=== PATIENT | female | born 1975 | race Caucasian/White ===

== ENCOUNTER 2025-02-14 02:36 | Inpatient (IN) | payer OTHER ==
[~2025-02-14] VITALS: Ht 154.9 cm; Wt 77.2 kg
--- NOTE | 2025-02-14 03:05 | ED.PDOC ---
GI ASSESSMENT HPI Comments Pt c/o flulike symptoms since yesterday morning. Pt c/o nausea/vomiting, diarrhea, intermittent abd pain, body aches, chills, headache, neck stiffness/pain. Pt rates current pain 10/10. Denies any sick contacts, fevers, cough, chest pain or difficulty breathing.. Pt just came back from vacation yesterday morning. Chief Complaint: Flu like Time Seen by MD: 02:44 Reviewed Notes: Nurses Notes, Medications, Allergies Allergies: Coded Allergies: NO KNOWN ALLERGIES (Unverified , 02/14/25) Information Source: Patient Mode of Arrival: Ambulatory Past Medical History PAST MEDICAL HISTORY: Denies Surgical History: Denies all surgeries [employer] History: No Pertinent [employer] History Family History Family History: Reviewed,noncontributory to illness Social History Smoker: Non-Smoker Alcohol: Denies ETOH Use Drugs: Denies Drug Use Constitutional: reports: fever, others (Body aches); denies: chills, diaphoresis, fatigue, malaise, sweats, weakness EENTM: denies: blurred vision, double vision, ear bleeding, ear discharge, ear drainage, ear pain, ear ringing, eye pain, eye redness, hearing loss, mouth pain, mouth swelling, nasal discharge, nose bleeding, nose congestion, nose pain, photophobia, tearing, throat pain, throat swelling, voice changes, others Cardiovascular: denies: chest pain, dizzy spells, diaphoresis, Dyspnea on exertion, edema, irregular heart beat, left arm pain, lightheadedness, palpitations, PND, syncope, others Gastrointestinal: reports: abdominal pain, diarrhea, nausea, vomiting; denies: abdomen distended, blood streaked bowels, constipated, dysphagia, difficulty swallowing, hematemesis, melena, poor appetite, poor fluid intake, rectal bleeding, rectal pain, others Physical Exam General Appearance: No Apparent Distress, Normal HEENT: Normal ENT Inspection, Pharynx Normal, TMs Normal Neck: Limited Range of Motion, Tender Lateral (Bilateral against resistance) Respiratory: Lungs Clear, No Respiratory Distress, Normal Breath Sounds Cardiovascular: No Edema, No JVD, No Murmur, No Gallop, Normal Peripheral Pulses, Regular Rate/Rhythm Breast Exam: Deferred Gastrointestinal: Distended, No Organomegaly, No Pulsatile Mass, Normal Bowel Sounds, Soft, Tenderness (Right and left lower quadrants) Genitalia: Deferred Pelvic: Deferred Rectal: Deferred Extremities: No calf tenderness, Normal capillary refill, Normal inspection, Normal range of motion, Non-tender, No pedal edema Musculoskeletal : Apperance: Normal Neurologic: Alert, relationship assoc II-XII nml as Tested, No Motor Deficits, Normal Affect, Normal Mood, No Sensory Deficits Cerebellar Function: Normal Reflexes: Normal Skin: Dry, Normal Color, Warm Lymphatic: No Adenopathy Was a procedure done? Was a procedure done?: No GI differential Dx Differential Diagnosis: Appendicitis, Cholecystitis, Gastroenteritis, UTI, Electrolyte Imbalance, Food Poisoning, Bacterial, Parasitic, Viral X-Ray, Labs, Meds, VS Vital Signs Date Time Temp Pulse Resp B/P (MAP) Pulse Ox O2 Delivery O2 Flow Rate FiO2 02/14/25 04:34 98.2 100 20 136/80 (98) 100 98.2 02/14/25 03:51 99.8 95 20 139/100 (113) 100 99.8 02/14/25 03:51 95 20 100 Nasal Cannula 2.0 02/14/25 02:41 98.6 122 20 177/94 96 98.6 Lab Test 02/14/25 03:28 02/14/25 03:24 02/14/25 03:07 02/14/25 02:50 Range/Units Lipase 43 12-53 U/L White Blood Count 19.2 H 4.4-10.8 10^3/uL Red Blood Count 4.98 4.0-5.20 10^6/uL Hemoglobin 12.5 12.2-16.2 g/dL Hematocrit 38.3 36.0-46.0 % Mean Corpuscular Volume 77.0 L 80.0-100.0 fL Mean Corpuscular Hemoglobin 25.0 L 28.0-32.0 pg Mean Corpuscular Hemoglobin Concent 32.5 32.0-36.0 g/dL Red Cell Distribution Width 19.8 H 11.8-14.3 % Platelet Count 289 140-450 10^3/uL Mean Platelet Volume 7.7 6.9-10.8 fL Neutrophils (%) (Auto) 89.2 H 37.0-80.0 % Lymphocytes (%) (Auto) 8.1 L 10.0-50.0 % Monocytes (%) (Auto) 2.1 0.0-12.0 % Eosinophils (%) (Auto) 0.4 0.0-7.0 % Basophils (%) (Auto) 0.2 0.0-2.0 % Neutrophils # (Auto) 17.1 H 1.6-8.6 10 ^3/uL Lymphocytes # (Auto) 1.6 0.4-5.4 10 ^3/uL Monocytes # (Auto) 0.4 0-1.3 10 ^3/uL Eosinophils # (Auto) 0.1 0-0.8 10 ^3/uL Basophils # (Auto) 0 0-0.2 10 ^3/uL Nucleated Red Blood Cells 0.1 % Sodium Level 140 136-145 mmol/L Potassium Level 4.2 3.5-5.1 mmol/L Chloride Level 109 H 98-107 mmol/L Carbon Dioxide Level 20 20-31 mmol/L Anion Gap 11 5-15 Blood Urea Nitrogen 12 9-23 mg/dL Creatinine 0.55 0.550-1.02 mg/dL Glomerular Filtration Rate Calc 112 >90 mL/min BUN/Creatinine Ratio 21.8 H 10.0-20.0 Serum Glucose 128 H 74-106 mg/dL Calcium Level 9.0 8.7-10.4 mg/dL Total Bilirubin 0.3 0.2-1.0 mg/dL Aspartate Amino Transferase (AST) 41 H 13-40 U/L Alanine Aminotransferase (ALT) 36 7-40 U/L Alkaline Phosphatase 122 H 46-116 U/L Total Protein 7.1 5.7-8.2 g/dL Albumin 4.1 3.2-4.8 g/dL Influenza Type A Antigen Negative Negative Influenza Type B Antigen Negative Negative SARS-CoV-2 Antigen (Rapid) Negative NEGATIVE Urine Color Light-yellow Yellow Urine Clarity Clear Clear Urine pH 6.0 5.0-9.0 Urine Specific Martin 1.011 1.001-1.035 Urine Protein Negative Negative Urine Ketones Negative Negative Urine Blood Negative Negative /uL Urine Nitrite Negative Negative Urine Bilirubin Negative Negative Urine Urobilinogen Normal Negative mg/dL Urine Leukocyte Esterase Negative Negative /uL Urine RBC None seen 0 - 4 /hpf Urine Microscopic WBC 2 0-5 /HPF Urine Squamous Epithelial Cells Few <5 /hpf Urine Bacteria None seen None Seen /hpf Urine Glucose Normal Normal mg/dL Urine Test Negative Negative Current Medications Medications (Trade) Dose Ordered Sig/Dewayne Route Start Time Stop Time Status Last Admin Ondansetron HCl (Zofran) 4 mg ONCE ONCE IV 02/14/25 03:00 02/14/25 03:01 DC 02/14/25 03:50 Sodium Chloride 1,000 ml @ 1,000 mls/hr Q1H ONCE IV 02/14/25 03:00 02/14/25 03:59 DC 02/14/25 03:43 Ketorolac Tromethamine (Toradol Injection) 30 mg ONCE ONCE IV 02/14/25 03:00 02/14/25 03:01 DC 02/14/25 03:50 X-Ray, Labs, Meds, VS Comment CBC elevated white count at 19.2. UA within normal limits. CMP within normal limits. CT cervical spine patient with moderate cervical pain and stiffness right arm weakness and pain considered spinal abscess, CT spine shows no acute findings noted cervical spondylosis. CT abdomen patient with bilateral lower quadrant abdominal pain, nausea vomiting. CT abdomen shows no acute process does show hepatomegaly. Chest x-ray shows no acute cardiopulmonary findings. Patient was given Toradol 30 mg Ivp she noted some improvement in her neck stiffness and pain however continued right shoulder and arm pain. Patient placed for hospitalist for admission leukocytosis consider possible meningitis we will need LP. Time of 1ST Reevaluation: 03:05 Reevaluation 1ST: Unchanged Time of 2ND Reevaluation: 05:05 Reevaluation 2ND: Improved Patient Education/Counseling: Diagnosis, Treatment, Prognosis, Need For Follow Up Family Education/Counseling: No Family Present SEPSIS Sepsis Screen Date sepsis recognized/suspect: Feb 14, 2025 Time Sepsis recognized/suspect: 244 Recent Procedure: No On Antibiotic Therapy: No Respiratory Rate >20: No Heart Rate >90: Yes Temp<36 C (96.8 F) or >38.3 C: No SBP <90 or MAP <65 mmHG: No New Acute Mental Status Change: No Is the patient on CPAP, BIPAP,: No Physician Orders Heplock Iv (02/14/25 02:59) Cervical Without Contrast (02/14/25 04:21) Chest Two Views Routine (02/14/25 04:21) Ct Ab Pel Wo Con-No Oral Or Iv (02/14/25 04:37) Vital Signs Date Time Temp Pulse Resp B/P (MAP) Pulse Ox O2 Delivery O2 Flow Rate FiO2 02/14/25 04:34 98.2 100 20 136/80 (98) 100 98.2 02/14/25 03:51 99.8 95 20 139/100 (113) 100 99.8 02/14/25 03:51 95 20 100 Nasal Cannula 2.0 02/14/25 02:41 98.6 122 20 177/94 96 98.6 Laboratory Tests Test 02/14/25 03:24 White Blood Count 19.2 10^3/uL (4.4-10.8) H Medications Medications Dose Ordered Sig/Dewayne Route Start Time Stop Time Status Last Admin Dose Admin Ketorolac Tromethamine 30 mg ONCE ONCE IV 02/14/25 03:00 02/14/25 03:01 DC 02/14/25 03:50 Ondansetron HCl 4 mg ONCE ONCE IV 02/14/25 03:00 02/14/25 03:01 DC 02/14/25 03:50 Sodium Chloride 1,000 ml @ 1,000 mls/hr Q1H ONCE IV 02/14/25 03:00 02/14/25 03:59 DC 02/14/25 03:43 Departure 1 Departure Time of Disposition: 05:24 Impression: Primary Impression: Leukocytosis Qualified Codes: D72.829 - Elevated white blood cell count, unspecified Additional Impression: Neck pain Disposition: 09 ADMITTED INPATIENT Condition: Stable Discharged With: Self Critical Care Note Critical Care Time?: No Stability Stability form required: AISSATOU RodriguezP Feb 14, 2025 03:05
[2025-02-14 03:43] LABS: Hemoglobin 12.5 g/dL (12.2-16.2)
[2025-02-14] MEDS: SODIUM CHLORIDE 0.9% 1,000 ML IV ONE (03:43)
[2025-02-14] MEDS: KETOROLAC TROMETH 30 MG/ML 1ML VIAL IV ONE (03:50)
[2025-02-14] MEDS: ONDANSETRON HCL 4 MG/2 ML VIAL IV ONE (03:50)
[2025-02-14 03:58] LABS: Alanine Aminotransferase 36 U/L (7-40); Albumin 4.1 g/dL (3.2-4.8); Anion Gap 11 (5-15); BUN/Creatinine Ratio 21.8 (10.0-20.0); Blood Urea Nitrogen 12 mg/dL (9-23); Calcium 9.0 mg/dL (8.7-10.4); Potassium 4.2 mmol/L (3.5-5.1); Sodium 140 mmol/L (136-145); Total Protein 7.1 g/dL (5.7-8.2)
[2025-02-14 04:00] LABS: Hematocrit 38.3 % (36.0-46.0); Mean Corpuscular Hemoglobin 25.0 pg (28.0-32.0); Mean Corpuscular Volume 77.0 fL (80.0-100.0); Nucleated Red Blood Cells % 0.1 %
[2025-02-14 04:02] LABS: Alkaline Phosphatase 122 U/L (46-116); Carbon Dioxide 20 mmol/L (20-31); Chloride 109 mmol/L (98-107); Glucose 128 mg/dL (74-106)
[2025-02-14 04:02] LABS: Urine Protein, UAD Negative (Negative)
[2025-02-14 04:03] LABS: Bilirubin, Total 0.3 mg/dL (0.2-1.0)
[2025-02-14 04:04] LABS: COVID19 ANTIGEN SOFIA FIA NEGATIVE (NEGATIVE)
--- NOTE | 2025-02-14 05:09 | DVH ---
CHEST RADIOGRAPH Indication: high WBC Technique: Frontal and lateral view of the chest was obtained Comparison: None FINDINGS: Lines and Tubes: None Lungs: Clear Pleura: No effusion. No pneumothorax. Cardiomediastinal contours: Unremarkable Bones: Unremarkable IMPRESSION: 1. No evidence of acute disease.
--- NOTE | 2025-02-14 05:11 | DVH ---
EXAM: CT CERVICAL WITHOUT CONTRAST INDICATION: Neck pain EXAM DATE: 02/14/2025 04:30 AM COMPARISON: None TECHNIQUE: Multiple axial CT images of the cervical spine were obtained using bone algorithm. Sagitta l and coronal reformatting was done. Bone and soft tissue windows were reviewed. Radiation Dose Information: CT Dose: CTDI volume is 26.4 mGy. Dose-length product is 587.6 mGy*cm FINDINGS: The cervical alignment is intact. Reversal of the cervical lordosis. No acute cervical spine fracture is identified. The vertebral body heights are intact. No suspicious osseous lesions are identified. Multilevel intervertebral disc degeneration. Mild central canal stenosis at C5-C7 due to posterior o steophytes. Moderate bilateral neural foraminal stenosis at C5-C6 and C6-C7. There is no prevertebral soft tissue swelling. Lung apices are clear. IMPRESSION: 1. No evidence of acute cervical spine fracture or traumatic malalignment. 2. Multilevel cervical spondylosis. All CT scans at this medical facility are performed using dose modulation techniques as appropriate t o a performed exam including the following: Automated exposure control was utilized; adjustment of th e MA and/or KV according to patient size; and use of iterative reconstruction technique.
--- NOTE | 2025-02-14 05:12 | DVH ---
Exam: CT CT AB PEL WO CON-NO ORAL OR IV History: abd pain Comparison Study: None Technique: Multidetector spiral CT of the abdomen was performed from lung bases to pubic symphysis. I maging was performed without IV contrast. Axial, coronal and sagittal multiplanar reformats were obta ined from the axial data set by the technologist. Radiation Dose : 1. Abdomen/Pelvis: CTDIvol 12.57 mGy, DLP 758.47 mGy*cm. Findings: Evaluation of solid organs is limited due to lack of intravenous contrast use. Lung Bases: No acute or significant lung base finding. Normal heart size. No pleural or pericardial effusion. Liver: The liver is enlarged, measuring 20.0 cm in craniocaudal dimension. No focal lesions. Gallbladder and Biliary Tree: Unremarkable Spleen: Unremarkable Pancreas: The pancreas is grossly normal in appearance. Adrenal Glands: Unremarkable Kidneys: Kidneys are grossly normal without calculi or hydronephrosis. Bladder: Grossly unremarkable for degree of distention. Bowel: The stomach is grossly normal in appearance. Small bowel and colon are normal in caliber and d istribution. The appendix is normal. Ascites: Absent Lymphadenopathy: No mesenteric, retroperitoneal or periportal lymphadenopathy. Abdominal Wall and Mesentery: Unremarkable. Vasculature: The visualized abdominal aorta is normal in size and caliber. Evaluation of abdominal a nd pelvic vessels is limited due to lack of intravenous contrast. Pelvic Organs: Unremarkable Musculoskeletal: No aggressive focal bony lesions, acute fractures or dislocation. IMPRESSION: 1. No acute abdominal or pelvic findings. 2. Hepatomegaly. Radiation optimization: All CT scans at this facility use at least one of these dose optimization bindu hniques: automated exposure control mA and/or kV adjustment per patient size (includes targeted exam s where dose is matched to clinical indication) or iterative reconstruction.
[2025-02-14 05:36] VITALS: PULSE 82; RESP 18; O2SAT 95
[2025-02-14] MEDS ORDERED: DOCUSATE SOD 100 MG CAP PO PRN (07:15)
[2025-02-14] MEDS ORDERED: TEMAZEPAM 15 MG CAP PO PRN (07:15)
[2025-02-14] MEDS ORDERED: NITROGLYCERIN 0.4 MG SL TAB SL PRN (07:15)
--- NOTE | 2025-02-14 07:16 | DVHHP2 ---
History of Present Illness Reason for Visit: flu like symptoms History of Present Illness 49-year-old female with past medical history of hypertension, hyperlipidemia, and prior meniscus injury to the right knee presents with her for evaluation of multiple symptoms. The patient and her recently returned from a five-day vacation in [facility] returning yesterday. Since yesterday, she reports flu-like symptoms including nausea, diarrhea, chills, headache, generalized body aches, and neck pain. She also endorses right-sided weakness involving the shoulder and lower extremity, with difficulty lifting her right arm due to pain. She denies chest pain or shortness of breath. She reports taking two pain pills prior to arrival without relief. She also reports intermittent vomiting. No fevers were documented but she reports chills. In the ED: CBC notable for leukocytosis (WBC 19.2), remainder of CBC unremarkable. CMP unremarkable except for mild dehydration. COVID-[address] cervical spine was unremarkable. CT abdomen/pelvis unremarkable. No CT brain initially orderedwill add. Chest X-ray unremarkable. On exam, neuro exam intact, no focal deficits noted, but she had limited range of motion in the right shoulder due to pain. She ambulated briefly but had discomfort. Given elevated WBC and persistent symptoms, will admit for further workup, hydration, and pain management. Past Medical History See HPI above Past Surgical History See HPI above Family History Reviewed, non-contributory to the management of this case. Past Social History The patient lives at home, denies smoking, alcohol or illicit drugs abuse. Review of Systems Constitutional: Yes: Fever, Chills, Weakness; No: Sweats, Malaise, Other Eyes: No: Pain, Vision change, Conjunctivae inflammation, Eyelid inflammation, Other, Redness ENT: No: Ear pain, Ear discharge, Nose pain, Nose discharge, Nose congestion, Mouth pain, Mouth swelling, Throat pain, Throat swelling, Other Respiratory: No: Cough, Dry, Shortness of breath, SOB with excertion, Wheezing, Hemoptysis, Pleuritic Pain, Sputum, Wheezing, Other Cardiovascular: No: Chest Pain, Palpitations, Orthopnea, Paroxysmal Noc. Dyspnea, Edema, Lt Headedness, Other Gastrointestinal: No: Nausea, Vomiting, Abdominal Pain, Diarrhea, Constipation, Melena, Hematochezia, Other Genitourinary: No Dysuria, No Frequency, No Incontinence, No Hematuria, No Retention, No Other Musculoskeletal: No: other, neck pain, shoulder pain, arm pain, back pain, hand pain, leg pain, foot pain Skin: No: Rash, Lesions, Jaundice, Bruising, Other Neurological: Weakness; No: Numbness, Incoordination, Change in speech, Confusion, Seizures, Other Allergies: Coded Allergies: NO KNOWN ALLERGIES (Unverified , 02/14/25) Exam Vital Signs Vital Signs Date Time Temp Pulse Resp B/P (MAP) Pulse Ox O2 Delivery O2 Flow Rate FiO2 02/14/25 05:36 98.6 82 18 130/61 (84) 95 98.6 02/14/25 05:36 Room Air* 0 21 General Appearance: Alert, Oriented X3, Cooperative, No acute distress, mild distress, Other (no nuchal rigidity ) HEENT: Atraumatic, PERRLA, EOMI, Mucous membr. moist/pink Respiratory: Clear to auscultation, Normal air movement Cardiovascular: Regular rate, Normal S1, Normal S2, No murmurs Abdominal: Normal bowel sounds, Soft, No tenderness, No hepatospenomegaly, No masses Extremities: No clubbing, No cyanosis, No edema, Normal pulses, No tenderness/swelling, Other (right shoulder and knee no heat no erythema no effusion seen at knee compartment soft nvi +silt ) Skin: No rashes, No breakdown, No significant lesion Neuro: Normal gait, Normal speech, Strength at 5/5 X4 ext, Normal tone, Sensati on intact, Cranial nerves 3-12 NL, Other (mild weakness to right arm gait appears normal) Psych/Mental Status: Mental status NL, Mood NL Labs/Xrays CT C-spine unremarkable CT scan of the abdomen and pelvis unremarkable hepatomegaly Chest x-ray unremarkable I reviewed labs, imaging CT scan abdomen pelvis, EKG and all diagnostic studies on this patient from ED records and the medical chart Labs Test 02/14/25 06:50 02/14/25 03:28 02/14/25 03:24 02/14/25 03:07 Range/Units Lipase 43 12-53 U/L White Blood Count 19.2 H 4.4-10.8 10^3/uL Red Blood Count 4.98 4.0-5.20 10^6/uL Hemoglobin 12.5 12.2-16.2 g/dL Hematocrit 38.3 36.0-46.0 % Mean Corpuscular Volume 77.0 L 80.0-100.0 fL Mean Corpuscular Hemoglobin 25.0 L 28.0-32.0 pg Mean Corpuscular Hemoglobin Concent 32.5 32.0-36.0 g/dL Red Cell Distribution Width 19.8 H 11.8-14.3 % Platelet Count 289 140-450 10^3/uL Mean Platelet Volume 7.7 6.9-10.8 fL Neutrophils (%) (Auto) 89.2 H 37.0-80.0 % Lymphocytes (%) (Auto) 8.1 L 10.0-50.0 % Monocytes (%) (Auto) 2.1 0.0-12.0 % Eosinophils (%) (Auto) 0.4 0.0-7.0 % Basophils (%) (Auto) 0.2 0.0-2.0 % Neutrophils # (Auto) 17.1 H 1.6-8.6 10 ^3/uL Lymphocytes # (Auto) 1.6 0.4-5.4 10 ^3/uL Monocytes # (Auto) 0.4 0-1.3 10 ^3/uL Eosinophils # (Auto) 0.1 0-0.8 10 ^3/uL Basophils # (Auto) 0 0-0.2 10 ^3/uL Nucleated Red Blood Cells 0.1 % Sodium Level 140 136-145 mmol/L Potassium Level 4.2 3.5-5.1 mmol/L Chloride Level 109 H 98-107 mmol/L Carbon Dioxide Level 20 20-31 mmol/L Anion Gap 11 5-15 Blood Urea Nitrogen 12 9-23 mg/dL Creatinine 0.55 0.550-1.02 mg/dL Glomerular Filtration Rate Calc 112 >90 mL/min BUN/Creatinine Ratio 21.8 H 10.0-20.0 Serum Glucose 128 H 74-106 mg/dL Calcium Level 9.0 8.7-10.4 mg/dL Total Bilirubin 0.3 0.2-1.0 mg/dL Aspartate Amino Transferase (AST) 41 H 13-40 U/L Alanine Aminotransferase (ALT) 36 7-40 U/L Alkaline Phosphatase 122 H 46-116 U/L Total Protein 7.1 5.7-8.2 g/dL Albumin 4.1 3.2-4.8 g/dL Influenza Type A Antigen Negative Negative Influenza Type B Antigen Negative Negative SARS-CoV-2 Antigen (Rapid) Negative NEGATIVE Test 02/14/25 02:50 Range/Units Urine Color Light-yellow Yellow Urine Clarity Clear Clear Urine pH 6.0 5.0-9.0 Urine Specific [place] 1.011 1.001-1.035 Urine Protein Negative Negative Urine Ketones Negative Negative Urine Blood Negative Negative /uL Urine Nitrite Negative Negative Urine Bilirubin Negative Negative Urine Urobilinogen Normal Negative mg/dL Urine Leukocyte Esterase Negative Negative /uL Urine RBC None seen 0 - 4 /hpf Urine Microscopic WBC 2 0-5 /HPF Urine Squamous Epithelial Cells Few <5 /hpf Urine Bacteria None seen None Seen /hpf Urine Glucose Normal Normal mg/dL Urine Test Negative Negative SEPSIS Sepsis Screen Date sepsis recognized/suspect: Feb 14, 2025 Time Sepsis recognized/suspect: 602 Recent Procedure: No On Antibiotic Therapy: No Respiratory Rate >20: No Heart Rate >90: No Temp<36 C (96.8 F) or >38.3 C: No SBP <90 or MAP <65 mmHG: No New Acute Mental Status Change: No Is the patient on CPAP, BIPAP,: No Physician Orders Heplock Iv (02/14/25 02:59) Cervical Without Contrast (02/14/25 04:21) Chest Two Views Routine (02/14/25 04:21) Ct Ab Pel Wo Con-No Oral Or Iv (02/14/25 04:37) Lactic Acid W/ Reflex Order (02/14/25 06:09) Blood Culture (02/14/25 06:09) Vital Signs Date Time Temp Pulse Resp B/P (MAP) Pulse Ox O2 Delivery O2 Flow Rate FiO2 02/14/25 05:36 98.6 82 18 130/61 (84) 95 98.6 02/14/25 05:36 82 18 95 Room Air* 0 21 02/14/25 04:34 98.2 100 20 136/80 (98) 100 98.2 02/14/25 03:51 99.8 95 20 139/100 (113) 100 99.8 02/14/25 03:51 95 20 100 Nasal Cannula 2.0 02/14/25 02:41 98.6 122 20 177/94 96 98.6 Laboratory Tests Test 02/14/25 03:24 02/14/25 06:50 White Blood Count 19.2 10^3/uL (4.4-10.8) H Lactic Acid Level Pending Medications Medications Dose Ordered Sig/Dewayne Route Start Time Stop Time Status Last Admin Dose Admin Ketorolac Tromethamine 30 mg ONCE ONCE IV 02/14/25 03:00 02/14/25 03:01 DC 02/14/25 03:50 30 MG Ondansetron HCl 4 mg ONCE ONCE IV 02/14/25 03:00 02/14/25 03:01 DC 02/14/25 03:50 4 MG Sodium Chloride 1,000 ml @ 1,000 mls/hr Q1H ONCE IV 02/14/25 03:00 02/14/25 03:59 DC 02/14/25 03:43 1,000 MLS/HR Assessment/Plan Assessment/Plan 49 yr old female with Leukocytosis with systemic symptoms and right-sided musculoskeletal pain requires inpatient evaluation for infectious, inflammatory, and neurologic causes. acute Gastrointestinal symptoms (nausea, vomiting, diarrhea) ct scan no acute findings ordered Zofran PRN for nausea IV fluid hydration Monitor electrolytes ordered cdiff acute Headache and neck pain ?right side weakness CT brain STAT to rule out acute intracranial pathology Neurology consult fu recs Analgesia and hydration neuro checks prn acute Leukocytosis with systemic symptoms can be viral vs acute phase reactant Obtain blood cultures 2 UA with reflex culture Stool cultures and C. difficile PCR given diarrhea Empiric IV fluids and symptomatic management Consider empiric antibiotics if infectious source identified acute Right shoulder pain and weakness X-ray right shoulder to rule out fracture/dislocation Analgesia: acetaminophen, NSAID if renal function stable, low-dose opioid PRN for severe pain Physical therapy consult for mobility acute Right knee pain (history of meniscus injury) X-ray right knee to rule out acute injury Continue supportive care and analgesia us to rule out dvt chronic problems acute Hypertension Continue home antihypertensives Hyperlipidemia Continue statin therapy FEN / PPx Fluids: IV NS for hydration Electrolytes: Monitor and replace PRN Nutrition: Regular diet as tolerated DVT Prophylaxis: Enoxaparin 40 mg SC daily GI Prophylaxis: no gi ppx since no hx of gerds or gi bleed Disposition Admit to medical floor for further infectious and neurologic workup, IV hydration, pain management, and monitoring. Plan discussed with: Patient, Spouse Date of Service: Feb 14, 2025 Billing Provider: SARAH NATHAN DNP Common Visit Codes: [id number] INP/OBS CARE (HIGH) SARAH NATHAN [facility] Feb 14, 2025 07:16
--- NOTE | 2025-02-14 07:48 | DVH ---
EXAM: CT HEAD WITHOUT CONTRAST INDICATION: Eval for acute headache TECHNIQUE: CT of the head without intravenous contrast. Coronal and sagittal reformatted images are s ubmitted. Radiation Dose : 1. Head: CT Dose: CTDI volume is 62.6 mGy. Dose-length product is 841.1 mGy*cm The dose indicators for CT are the volume Computed Tomography (CT) Dose Index (CTDIvol) and the Dose Length Product (DLP), and are measured in units of mGy and mGy-cm, respectively. These indicators are not patient dose, but values generated from the CT scanner acquisition factors. The report includes radiation exposure data for exposures received during this examination. All CT scans at this medical facility are performed using dose modulation techniques as appropriate to a performed exam including the following: Automated exposure control was utilized; adjustment of the MA and/or KV according to patient size; and use of iterative reconstruction technique. COMPARISON: CT CERVICAL WITHOUT CONTRAST on DOS: 02/14/25 FINDINGS: There is no evidence of acute intracranial hemorrhage, extra-axial collection, mass effect, midline s hift, herniation or hydrocephalus. The ventricles, sulci and cisterns are age appropriate. The post-white differentiation is intact. The visualized paranasal sinuses and mastoid air cells are clear. No depressed calvarial fracture. The surrounding soft tissues are unremarkable. IMPRESSION: 1. No evidence of acute intracranial abnormality.
--- NOTE | 2025-02-14 07:50 | DVH ---
EXAM: XY R SHOULDER 2+ VIEW XRAY HISTORY: eval for right shoulder pain COMPARISON: None TECHNIQUE: Four views of the right shoulder were performed. FINDINGS: No acute fracture or dislocation are identified about the right shoulder. Acromioclavicular joint sp melvi narrowing. 4 mm focus of mineralization overlying the humeral head. IMPRESSION: 1. No fracture or dislocation. 2. Calcific tendinitis in the rotator cuff.
--- NOTE | 2025-02-14 07:51 | DVH ---
EXAM: XY R KNEE 3V XRAY HISTORY: Eval for acute right knee pain COMPARISON: None TECHNIQUE: 3 views of the right knee were performed. FINDINGS: No acute fracture is identified about the right knee. Lateral compartment joint space narrowing. La teral compartment osteophytes. Patellofemoral osteophytes. IMPRESSION: 1. No fracture or dislocation in the right knee.
--- NOTE | 2025-02-14 08:18 | DVH ---
Right lower extremity venous duplex Clinical History: eval for dvt Comparison: None Technique: Duplex Doppler evaluation of the deep venous system of the right lower extremity from the common femo ral vein to the popliteal vein including color Doppler and spectral/pulsed waveform analysis was perf ormed. Findings: The common femoral vein demonstrates appropriate compressibility and waveform variability. There is compressibility/patency of the great saphenous vein at the proximal thigh. The femoral vein demonstrates appropriate compressibility and waveform variability. The deep femoral vein demonstrates appropriate compressibility and waveform variability. The popliteal vein demonstrates appropriate compressibility and waveform variability. There is normal compressibility at the tibioperoneal trunk. Impression: No right femoropopliteal venous thrombosis.
[2025-02-14 08:57] VITALS: PULSE 92; RESP 18; O2SAT 96
[2025-02-14] MEDS: SODIUM CHLORIDE 0.9% 1,000 ML IV SCH ×2 (09:14→22:31)
[2025-02-14] MEDS: MORPHINE SULFATE INJ 2 MG/ml SYRG IV PRN (09:14)
[2025-02-14] MEDS: ONDANSETRON HCL 4 MG/2 ML VIAL IV PRN (09:15)
[2025-02-14 17:40] VITALS: BP 114/75; PULSE 65; RESP 19; TEMP 98.9; O2SAT 98
--- NOTE | 2025-02-14 17:55 | DVHPN2 ---
Subjective I am assuming the care of the patient from today onwards who was under the care of the hospitalist team. Patient denies any right-sided weakness or any slurred speech stroke like symptoms. Changes from previous H/P or p: No Changes Eyes: No Pain, No Vision change, No Conjunctivae inflammation, No Eyelid inflammation, No Other, No Redness ENT: No Ear pain, No Ear discharge, No Nose pain, No Nose discharge, No Nose congestion, No Mouth pain, No Mouth swelling, No Throat pain, No Throat swelling, No Other Cardiovascular: No Chest Pain, No Palpitations, No Orthopnea, No Paroxysmal Noc. Dyspnea, No Edema, No Lt Headedness, No Other Respiratory: No Cough, No Dry, No Shortness of breath, No SOB with excertion, No Wheezing, No Hemoptysis, No Pleuritic Pain, No Sputum, No Other Gastrointestinal: No Nausea, No Vomiting, No Abdominal Pain, No Diarrhea, No Constipation, No Melena, No Hematochezia, No Other Genitourinary: No Dysuria, No Frequency, No Incontinence, No Hematuria, No Retention, No Other Musculoskeletal: No other, No neck pain, No shoulder pain, No arm pain, No back pain, No hand pain, No leg pain, No foot pain Skin: No Rash, No Lesions, No Jaundice, No Bruising, No Other Objective Vitals Vital Signs Date Time Temp Pulse Resp B/P (MAP) Pulse Ox O2 Delivery O2 Flow Rate FiO2 02/14/25 17:34 92 14 155/85 02/14/25 14:30 95 02/14/25 11:30 98.2 98.2 02/14/25 08:57 Room Air* 0 21 Exam HEENT pupils are reactive Neck is supple CVS S1-S2 regular rate and rhythm Respiratory bilateral clear next GI positive bowel sounds Extremity no edema H[employer]ER no motor deficit Medications Current Medications Medications Dose Ordered Sig/Dewayne Route Start Time Stop Time Status Last Admin Dose Admin Sodium Chloride 1,000 ml @ 120 mls/hr Q8H20M IV 02/14/25 07:15 02/14/25 09:14 120 MLS/HR Temazepam 15 mg QHSP PRN PO 02/14/25 07:15 Ondansetron HCl 4 mg Q4HP PRN IV 02/14/25 07:15 02/14/25 16:39 4 MG Docusate Sodium 100 mg BIDPRN PRN PO 02/14/25 07:15 Morphine Sulfate 2 mg Q4HPRN PRN IV 02/14/25 07:15 02/14/25 16:39 2 MG Nitroglycerin 0.4 mg Q5MINP PRN SL 02/14/25 07:15 Losartan Potassium 50 mg DAILY PO 02/15/25 10:00 UNV Laboratory Results Laboratory Tests 02/14/25 03:24 Chemistry Test 02/14/25 03:24 Albumin 4.1 g/dL (3.2-4.8) Calcium Level 9.0 mg/dL (8.7-10.4) Total Protein 7.1 g/dL (5.7-8.2) Lipid panel Test 02/14/25 03:28 Lipase 43 U/L (12-53) LFT Test 02/14/25 03:24 Alanine Aminotransferase (ALT) 36 U/L (7-40) Alkaline Phosphatase 122 U/L (46-116) H Aspartate Amino Transferase (AST) 41 U/L (13-40) H Total Bilirubin 0.3 mg/dL (0.2-1.0) Urinalysis Test 02/14/25 02:50 Urine Color Light-yellow (Yellow) Urine Clarity Clear (Clear) Urine pH 6.0 (5.0-9.0) Urine Specific [place] 1.011 (1.001-1.035) Urine Protein Negative (Negative) Urine Ketones Negative (Negative) Urine Blood Negative /uL (Negative) Urine Nitrite Negative (Negative) Urine Bilirubin Negative (Negative) Urine Urobilinogen Normal mg/dL (Negative) Urine Leukocyte Esterase Negative /uL (Negative) Urine RBC None seen /hpf (0 - 4) Urine Microscopic WBC 2 /HPF (0-5) Urine Squamous Epithelial Cells Few /hpf (<5) Urine Bacteria None seen /hpf (None Seen) Urine Glucose Normal mg/dL (Normal) Urine Test Negative (Negative) Assessment/Plan Assessment/Plan 49-year-old female with a known history of hypertension, morbid obesity class one initially presented to the hospital with right-sided weakness and headache found to have 1. Right-sided weakness and headache rule out acute stroke, ruled out subarachnoid hemorrhage 2. Hypertension 3. Dyslipidemia 4. Mild leukocytosis elderly acute phase reactant -continue hypertensive medications MRI brain mild lumbar puncture -neurology follow up Plan discussed with: Patient My Orders Orders - MAURICE RUIZ MD Procedure Category Date Status Time Brain Head Wo Contrast MRI 02/14/25 Logged 17:30 Date of Service: Mar 17, 2025 Billing Provider: MAURICE RUIZ MD Common Visit Codes: [id number] INP/OBS CARE(MOD) MAURICE RUIZ MD Feb 14, 2025 17:55
[2025-02-14 18:07] VITALS: PULSE 78; RESP 22; O2SAT 98
--- NOTE | 2025-02-14 19:50 | DVHINCON2 ---
Date of service: Feb 14, 2025 Referring Physician Rosanna Reason for Consultation Acute right-sided weakness and headache History of Present Illness Ms. Ryan Lai is a 49 years old right-handed female with a history of obesity, hypertension, she was brought to the [facility] on 02/14 25 with a chief company of headache. At this time, she is alert and fully oriented, she and her provided the following history She woke up in the morning on 02/14/25 with the worst headache in her life, which is a 10/10 pulsating pain in bilateral occipital region, neck, along with neck stiffness, right-sided weakness in that she was not able to get up. but there was no associated vision change, nausea, vomiting. She has never had similar problem before, she has no history of headache/migraine, she denies a family history of headache/migraine On 02/13/2025, she had nausea, vomiting and the nausea Urinalysis, 02/14/2025: WBC: Two, urine leukocyte esterase: Negative WBC/HB/PLT/MCV, 02/14/2025: 19.2/12.5/289/77 CMP, 02/14/2025: Unremarkable CT head, 02/14/2025: No evidence of acute intracranial abnormality. Past Medical History Diabetes Past Surgical History Right knee surgery, Family History Hypertension, diabetes, heart disease. No headache Social History She has no history of drug or alcohol abuse. She used to smoke tobacco Allergies: Coded Allergies: NO KNOWN ALLERGIES (Unverified , 02/14/25) Current Medications Current Medications Medications (Trade) Dose Ordered Sig/Dewayne Route PRN Reason Start Time Stop Time Status Last Admin Sodium Chloride 1,000 ml @ 120 mls/hr Q8H20M IV 02/14/25 07:15 02/14/25 09:14 Temazepam (Restoril) 15 mg QHSP PRN PO FOR INSOMNIA 02/14/25 07:15 Ondansetron HCl (Zofran) 4 mg Q4HP PRN IV NAUSEA / VOMITING 02/14/25 07:15 02/14/25 16:39 Docusate Sodium (Colace Capsule) 100 mg BIDPRN PRN PO FOR CONSTIPATION 02/14/25 07:15 Morphine Sulfate 2 mg Q4HPRN PRN IV SEVERE PAIN (7-10 PAIN SCALE) 02/14/25 07:15 02/14/25 16:39 Nitroglycerin (Ntrostat Sublingual) 0.4 mg Q5MINP PRN SL FOR CHEST PAIN 02/14/25 07:15 Losartan Potassium (Cozaar Tablet) 50 mg DAILY PO 02/15/25 10:00 Review of Systems As above, the other systems are negative Vital Signs Vital Signs Date Time Temp Pulse Resp B/P (MAP) Pulse Ox O2 Delivery O2 Flow Rate FiO2 02/14/25 17:40 98.9 65 19 114/75 (88) 98 98.9 02/14/25 08:57 Room Air* 0 21 Physical Exam GENERAL EXAM: General: the patient is well developed and nourished. No acute distress. HEENT: Normocephalic, neck is supple, no carotid bruits. No mass. RESPIRATORY: Normal respiratory effort with symmetrical lung expansion. Lungs clear to auscultation. CARDIOVASCULAR: Regular rate and rhythm with no murmurs. S1, S2. ABDOMEN: Soft, nontender, normal bowel sound NEUROLOGICAL: MENTAL STATUS: Awake and alert. Oriented to person, place, time and general circumstances. Able to give personal history SPEECH, LANGUAGE, HIGHER CORTICAL FUNCTION: no aphasia or dysathria. CRANIAL NERVES: #2: Intact visual monreal to confrontation. The optic discs were sharp. #3,4,6: Pupils are equal, round and reactive. EOMs full and conjugate. No nystagmus. #5: Facial sensation intact in all three divisions bilaterally. Mandibular strength intact. #7: Facial muscles symmetrical and strength intact. #8: Hearing grossly normal to voice. #9,10: Uvula and soft palate rise in the midline. Swallow and voice are normal. #11: Trapezius and sternomastoid strength intact bilaterally. #12: Tongue midline. No fasciculations or atrophy. SENSATION: Sensation to touch and pinprick is normal. MOTOR: Normal tone in the upper and lower extremity. Normal muscle bulk. No fasciculations. No abnormal movements or posturing. Muscle strength of the major groups in the left extremities is 5/5. Muscle strength of the major groups in the right extremities is 4/5 with drift in the arms and leg. REFLEXES: Deep tendon reflexes are symmetrical. No pathological reflexes. CEREBELLAR/COORDINATION: Finger to nose is normal bilaterally. GAIT/STATION: deferred. Labs/Diagnostic Data Labs Test 02/14/25 06:50 02/14/25 03:28 02/14/25 03:24 02/14/25 03:07 Range/Units Lactic Acid Level 1.5 0.4-2.0 mmol/L Lipase 43 12-53 U/L White Blood Count 19.2 H 4.4-10.8 10^3/uL Red Blood Count 4.98 4.0-5.20 10^6/uL Hemoglobin 12.5 12.2-16.2 g/dL Hematocrit 38.3 36.0-46.0 % Mean Corpuscular Volume 77.0 L 80.0-100.0 fL Mean Corpuscular Hemoglobin 25.0 L 28.0-32.0 pg Mean Corpuscular Hemoglobin Concent 32.5 32.0-36.0 g/dL Red Cell Distribution Width 19.8 H 11.8-14.3 % Platelet Count 289 140-450 10^3/uL Mean Platelet Volume 7.7 6.9-10.8 fL Neutrophils (%) (Auto) 89.2 H 37.0-80.0 % Lymphocytes (%) (Auto) 8.1 L 10.0-50.0 % Monocytes (%) (Auto) 2.1 0.0-12.0 % Eosinophils (%) (Auto) 0.4 0.0-7.0 % Basophils (%) (Auto) 0.2 0.0-2.0 % Neutrophils # (Auto) 17.1 H 1.6-8.6 10 ^3/uL Lymphocytes # (Auto) 1.6 0.4-5.4 10 ^3/uL Monocytes # (Auto) 0.4 0-1.3 10 ^3/uL Eosinophils # (Auto) 0.1 0-0.8 10 ^3/uL Basophils # (Auto) 0 0-0.2 10 ^3/uL Nucleated Red Blood Cells 0.1 % Sodium Level 140 136-145 mmol/L Potassium Level 4.2 3.5-5.1 mmol/L Chloride Level 109 H 98-107 mmol/L Carbon Dioxide Level 20 20-31 mmol/L Anion Gap 11 5-15 Blood Urea Nitrogen 12 9-23 mg/dL Creatinine 0.55 0.550-1.02 mg/dL Glomerular Filtration Rate Calc 112 >90 mL/min BUN/Creatinine Ratio 21.8 H 10.0-20.0 Serum Glucose 128 H 74-106 mg/dL Calcium Level 9.0 8.7-10.4 mg/dL Total Bilirubin 0.3 0.2-1.0 mg/dL Aspartate Amino Transferase (AST) 41 H 13-40 U/L Alanine Aminotransferase (ALT) 36 7-40 U/L Alkaline Phosphatase 122 H 46-116 U/L Total Protein 7.1 5.7-8.2 g/dL Albumin 4.1 3.2-4.8 g/dL Influenza Type A Antigen Negative Negative Influenza Type B Antigen Negative Negative SARS-CoV-2 Antigen (Rapid) Negative NEGATIVE Test 02/14/25 02:50 Range/Units Urine Color Light-yellow Yellow Urine Clarity Clear Clear Urine pH 6.0 5.0-9.0 Urine Specific [place] 1.011 1.001-1.035 Urine Protein Negative Negative Urine Ketones Negative Negative Urine Blood Negative Negative /uL Urine Nitrite Negative Negative Urine Bilirubin Negative Negative Urine Urobilinogen Normal Negative mg/dL Urine Leukocyte Esterase Negative Negative /uL Urine RBC None seen 0 - 4 /hpf Urine Microscopic WBC 2 0-5 /HPF Urine Squamous Epithelial Cells Few <5 /hpf Urine Bacteria None seen None Seen /hpf Urine Glucose Normal Normal mg/dL Urine Test Negative Negative Assessment Acute there was ever headache maximized at the moment on waking up, with right- sided weakness Acute stroke Rule out brain aneurysm, Rule out subarachnoid hemorrhage Plan/Recommendation Monitoring Supportive treatment Telemetry Lumbar puncture for the evidence of SAH MR brain scan CTA head, neck More recommendation per clinical course This medical document was created using an electronic medical record system with [employer] dictation system. Although this document has been carefully reviewed, there may still be some phonetic and typographical errors. These areas are purely typographical due to imperfections of the software programs, and do not reflect any compromise in the patient's medical care. Plan discussed with: Patient, Spouse, Other LISBET ZACARIAS MD Feb 14, 2025 19:50
[2025-02-14 20:00] VITALS: PULSE 64; RESP 18; O2SAT 99
[2025-02-14 21:00] VITALS: BP 120/79; PULSE 64; RESP 18; TEMP 98.7; O2SAT 99
[2025-02-14] MEDS ORDERED: LOSA-534 PO (21:52)
[2025-02-15] VITALS (9 sets, daily range): BP systolic 122–149; BP diastolic 76–100; PULSE 68–91; RESP 17–19; TEMP 97.7–98.4; O2SAT 95–100
[2025-02-15] MEDS ORDERED: IOHEXOL 350 MG/ML 100ML IJ ONE (00:09)
--- NOTE | 2025-02-15 01:00 | DVH ---
INDICATION: Brain aneurysm COMPARISON: CT HEAD WITHOUT CONTRAST on DOS: 02/14/25, CT CERVICAL WITHOUT CONTRAST on DOS: 02/14/25 TECHNIQUE: CTA head without and with intravenous contrast. CTA neck with intravenous contrast. 3D image postprocessing was performed on a dedicated workstation and images were used for interpretation and reporting. Radiation Dose Information: CT Dose: CTDI volume is 22.23 mGy. Dose-length product is 891.22 mGy*cm FINDINGS: Evaluation is mildly degraded by motion artifact. CTA head: There is normal enhancement of the visualized distal internal carotid, anterior and middle cerebral a rteries. The vertebral, basilar, cerebellar and posterior cerebral arteries are within normal limit s. The early parenchymal enhancement is grossly unremarkable. The visualized intracranial venous st ructures are grossly unremarkable. No aneurysm is seen. CTA neck: The visualized thoracic aortic arch and proximal great vessels are unremarkable. The left common, internal and external carotid arteries are within normal limits. The right common, internal and external carotid arteries are within normal limits. The cervical segments of the right and left vertebral arteries are within normal limits. The limited visualized lung apices are clear. The surrounding soft tissues and osseous structures ar e otherwise unremarkable. IMPRESSION: 1. No acute vascular abnormality identified. All CT scans at this medical facility are performed using dose modulation techniques as appropriate t o a performed exam including the following: Automated exposure control was utilized; adjustment of th e MA and/or KV according to patient size; and use of iterative reconstruction technique.
[2025-02-15 06:40] LABS: Hematocrit 31.8 % (36.0-46.0); Hemoglobin 10.6 g/dL (12.2-16.2); Mean Corpuscular Hemoglobin 25.6 pg (28.0-32.0); Mean Corpuscular Volume 76.8 fL (80.0-100.0); Nucleated Red Blood Cells % 0.1 %
[2025-02-15 06:58] LABS: Alanine Aminotransferase 31 U/L (7-40); Albumin 3.9 g/dL (3.2-4.8); Alkaline Phosphatase 103 U/L (46-116); Anion Gap 9 (5-15); BUN/Creatinine Ratio 11.6 (10.0-20.0); Blood Urea Nitrogen < 5 mg/dL (9-23); Calcium 8.9 mg/dL (8.7-10.4); Carbon Dioxide 25 mmol/L (20-31); Chloride 107 mmol/L (98-107); Glucose 95 mg/dL (74-106); Potassium 3.5 mmol/L (3.5-5.1); Sodium 141 mmol/L (136-145); Total Protein 6.5 g/dL (5.7-8.2)
[2025-02-15 06:59] LABS: Bilirubin, Total 0.3 mg/dL (0.2-1.0)
[2025-02-15 08:57] LABS: INR 1.12 (0.9-1.15); Partial Thromboplastin Time 27.6 SEC (24.5-34.5); Prothrombin Time 11.7 sec (9.3-11.8)
--- NOTE | 2025-02-15 09:23 | DVH ---
MRI BRAIN HEAD WO CONTRAST INDICATION: Right-sided weakness. EXAM DATE: 02/15/2025 08:42 AM COMPARISON: CT ANGIO HEAD/NECK on DOS: 02/15/25, CT HEAD WITHOUT CONTRAST on DOS: 02/14/25, CT CERVICAL WITHOUT CONTRAST on DOS: 02/14/25 PROCEDURE: Using a 1.5 Heena scanner, multisequence multiplanar imaging of the brain was obtained. FINDINGS: The brainshows normal morphology and signal characteristics. No abnormal T2 hyperintensity, diffusion restriction, or susceptibility hypointensity is present. The ventricles are normal in size . The midline structures are intact. The major intracranial flow voids are present. The aerated space s are normal. The orbital contents and extracranial soft tissues appear normal. IMPRESSION: No acute abnormal MRI findings of the brain.
[2025-02-15] MEDS ORDERED: LIDOCAINE 2%HCL (LOCAL ANESTH.) INJ 20ML MDV ONE (10:33)
[2025-02-15] MEDS: LOSARTAN POTASSIUM 50 MG TAB PO SCH (11:09)
--- NOTE | 2025-02-15 11:13 | DVH ---
PROCEDURE: Lumbar puncture (LP) - Diagnostic Procedural Personnel Attending physician(s): Riccardo Olguin Fellow physician(s): None Resident physician(s): None Advanced practice provider(s): None Pre-procedure diagnosis: Headaches Post-procedure diagnosis: Same Indication: Suspicion of subarachnoid hemorrhage Additional clinical history: None Complications: No immediate complications. IMPRESSION: Image-guided lumbar puncture, yielding 10 mL of clear fluid. Plan: The patient tolerated the procedure well.The patient was transferred to the recovery area for an hour of observation. PROCEDURE SUMMARY: - Diagnostic lumbar puncture with fluoroscopic guidance - Additional procedure(s): None PROCEDURE DETAILS: Pre-procedure Consent: Informed consent for the procedure including risks, benefits and alternatives was obtained a nd time-out was performed prior to the procedure. Preparation: The site was prepared and draped using maximal sterile barrier technique including cutan eous antisepsis. Anesthesia/sedation Level of anesthesia/sedation: No sedation Anesthesia/sedation administered by: Not applicable Total intra-service sedation time (minutes): Not applicable Lumbar puncture The patient was placed in left lateral decubitus position. Local anesthesia was administered. Under image guidance, a spinal needle was advanced into the subarachnoid space using oblique interlaminar approach. Spinal needle: 20 gauge, 3.5 inch Interspace level: L2-L3 Opening CSF pressure: 23 cm H2O Volume of CSF removed (mL): 10 CSF fluid appearance: clear Closure The needle was removed and hemostasis was achieved with manual compression. A sterile bandage was paulo lied. Radiation Dose Fluoroscopy time (seconds ): 27 Reference air kerma (mGy ): 6 Kerma area product (Gy-cm2 ): .74 Additional Details Additional description of procedure: None Registry event: V /3 /g Device used: None Equipment details: None Unique Device Identifiers: Not available Specimens removed: None Estimated blood loss (mL): Less than 10 Standardized report: [email or web address] Attestation Signer name: Riccardo Olguin I attest that I was present for the entire procedure . I reviewed the stored images and agree with th e report as written.
[2025-02-15 12:19] LABS: Protein, CSF 34.0 mg/dL (15-45)
[2025-02-15 12:33] LABS: Description,CSF CLEAR
--- NOTE | 2025-02-15 17:14 | DVHPN2 ---
Subjective Patient's MRI brain is negative, LP was done which shows no evidence of organisms. Neurology follow up per discharge plan. Changes from previous H/P or p: No Changes Eyes: No Pain, No Vision change, No Conjunctivae inflammation, No Eyelid inflammation, No Other, No Redness ENT: No Ear pain, No Ear discharge, No Nose pain, No Nose discharge, No Nose congestion, No Mouth pain, No Mouth swelling, No Throat pain, No Throat swelling, No Other Cardiovascular: No Chest Pain, No Palpitations, No Orthopnea, No Paroxysmal Noc. Dyspnea, No Edema, No Lt Headedness, No Other Respiratory: No Cough, No Dry, No Shortness of breath, No SOB with excertion, No Wheezing, No Hemoptysis, No Pleuritic Pain, No Sputum, No Other Gastrointestinal: No Nausea, No Vomiting, No Abdominal Pain, No Diarrhea, No Constipation, No Melena, No Hematochezia, No Other Genitourinary: No Dysuria, No Frequency, No Incontinence, No Hematuria, No Retention, No Other Musculoskeletal: No other, No neck pain, No shoulder pain, No arm pain, No back pain, No hand pain, No leg pain, No foot pain Skin: No Rash, No Lesions, No Jaundice, No Bruising, No Other Objective Vitals Vital Signs Date Time Temp Pulse Resp B/P (MAP) Pulse Ox O2 Delivery O2 Flow Rate FiO2 02/15/25 17:01 97.7 84 17 145/86 (105) 95 97.7 02/15/25 08:00 Room Air* 0 21 Intake/Output Intake and Output 02/15/25 07:00 Intake Total 1360 ml Balance 1360 ml Intake Oral 400 ml IV Total 960 ml # Voids 1 Exam HEENT pupils are reactive Neck is supple CVS S1-S2 regular rate and rhythm Respiratory viral clear GI positive bowel sounds soft nondistended nontender Extremity no edema [employer]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 motor deficit Medications Current Medications Medications Dose Ordered Sig/Dewayne Route Start Time Stop Time Status Last Admin Dose Admin Temazepam 15 mg QHSP PRN PO 02/14/25 07:15 Ondansetron HCl 4 mg Q4HP PRN IV 02/14/25 07:15 02/14/25 16:39 4 MG Docusate Sodium 100 mg BIDPRN PRN PO 02/14/25 07:15 Morphine Sulfate 2 mg Q4HPRN PRN IV 02/14/25 07:15 02/15/25 13:44 2 MG Nitroglycerin 0.4 mg Q5MINP PRN SL 02/14/25 07:15 Losartan Potassium 50 mg DAILY PO 02/15/25 10:00 02/15/25 11:09 50 MG Sodium Chloride 1,000 ml @ 100 mls/hr Q10H IV 02/14/25 20:30 02/14/25 22:31 100 MLS/HR Clonidine HCl 0.1 mg Q4HP PRN PO 02/14/25 21:15 02/15/25 06:40 0.1 MG Laboratory Results Laboratory Tests 02/15/25 05:39 Chemistry Test 02/15/25 05:39 Albumin 3.9 g/dL (3.2-4.8) Calcium Level 8.9 mg/dL (8.7-10.4) Total Protein 6.5 g/dL (5.7-8.2) Coagulation Test 02/15/25 05:39 Prothrombin Time 11.7 sec (9.3-11.8) Prothrombin Time INR 1.12 (0.9-1.15) Activated Partial Thromboplast Time 27.6 SEC (24.5-34.5) LFT Test 02/15/25 05:39 Alanine Aminotransferase (ALT) 31 U/L (7-40) Alkaline Phosphatase 103 U/L (46-116) Aspartate Amino Transferase (AST) 26 U/L (13-40) Total Bilirubin 0.3 mg/dL (0.2-1.0) Urinalysis Test 02/14/25 02:50 Urine Color Light-yellow (Yellow) Urine Clarity Clear (Clear) Urine pH 6.0 (5.0-9.0) Urine Specific [place] 1.011 (1.001-1.035) Urine Protein Negative (Negative) Urine Ketones Negative (Negative) Urine Blood Negative /uL (Negative) Urine Nitrite Negative (Negative) Urine Bilirubin Negative (Negative) Urine Urobilinogen Normal mg/dL (Negative) Urine Leukocyte Esterase Negative /uL (Negative) Urine RBC None seen /hpf (0 - 4) Urine Microscopic WBC 2 /HPF (0-5) Urine Squamous Epithelial Cells Few /hpf (<5) Urine Bacteria None seen /hpf (None Seen) Urine Glucose Normal mg/dL (Normal) Urine Test Negative (Negative) Microbiology Microbiology Date/Time Source Procedure Growth Status 02/15/25 11:00 Cerebral Spinal Fluid Gram Stain - Final Resulted 02/15/25 11:00 Cerebral Spinal Fluid CSF Culture & Gram Stain (Tube 2) M Pending Resulted 02/14/25 07:15 Blood Blood Culture - Preliminary NO GROWTH AFTER 24 HOURS OF INCUBATION. Resulted Assessment/Plan Assessment/Plan 49-year-old female with a known history of hypertension, morbid obesity class one initially presented to the hospital with right-sided weakness and headache found to have 1. Right-sided weakness and headache rule out acute stroke, ruled out subarachnoid hemorrhage 2. Hypertension 3. Dyslipidemia 4. Mild leukocytosis elderly acute phase reactant -continue hypertensive medications MRI brain mild lumbar puncture -neurology follow up Plan discussed with: Patient, Spouse My Orders Orders - MAURICE RUIZ MD Procedure Category Date Status Time Brain Head Wo Contrast MRI 02/15/25 Resulted 17:30 Date of Service: Feb 15, 2025 Billing Provider: MAURICE RUIZ MD Common Visit Codes: [id number] INP/OBS CARE(MOD) MAURICE RUIZ MD Feb 15, 2025 17:14
[2025-02-16] VITALS (9 sets, daily range): BP systolic 136–181; BP diastolic 80–107; PULSE 69–102; RESP 18–20; TEMP 97.8–98.2; O2SAT 93–98
--- NOTE | 2025-02-16 16:36 | DVHDS2 ---
Discharge Summary Date of Admission Feb 14, 2025 at 07:10 Date of Discharge: Feb 16, 2025 Labs/Diagnostic Data: Laboratory Results Test 02/15/25 11:00 02/15/25 05:39 02/14/25 06:50 02/14/25 03:28 CSF Tube Number Tube 3 CSF Appearance Clear CSF WBC 0 CUMM (0-5) CSF RBC 0 CUMM (0-5) CSF Protein (Tube 2) 34.0 mg/dL (15-45) CSF Mononuclear Cells % CSF Polymorphonuclear Cells % CSF Glucose 67 mg/dL (40-70) White Blood Count 7.1 10^3/uL (4.4-10.8) Red Blood Count 4.15 10^6/uL (4.0-5.20) Hemoglobin 10.6 g/dL (12.2-16.2) Hematocrit 31.8 % (36.0-46.0) Mean Corpuscular Volume 76.8 fL (80.0-100.0) Mean Corpuscular Hemoglobin 25.6 pg (28.0-32.0) Mean Corpuscular Hemoglobin Concent 33.4 g/dL (32.0-36.0) Red Cell Distribution Width 19.6 % (11.8-14.3) Platelet Count 213 10^3/uL (140-450) Mean Platelet Volume 7.8 fL (6.9-10.8) Neutrophils (%) (Auto) 65.3 % (37.0-80.0) Lymphocytes (%) (Auto) 23.3 % (10.0-50.0) Monocytes (%) (Auto) 7.9 % (0.0-12.0) Eosinophils (%) (Auto) 3.1 % (0.0-7.0) Basophils (%) (Auto) 0.4 % (0.0-2.0) Neutrophils # (Auto) 4.7 10 ^3/uL (1.6-8.6) Lymphocytes # (Auto) 1.7 10 ^3/uL (0.4-5.4) Monocytes # (Auto) 0.6 10 ^3/uL (0-1.3) Eosinophils # (Auto) 0.2 10 ^3/uL (0-0.8) Basophils # (Auto) 0 10 ^3/uL (0-0.2) Nucleated Red Blood Cells 0.1 % Prothrombin Time 11.7 sec (9.3-11.8) Prothrombin Time INR 1.12 (0.9-1.15) Activated Partial Thromboplast Time 27.6 SEC (24.5-34.5) Sodium Level 141 mmol/L (136-145) Potassium Level 3.5 mmol/L (3.5-5.1) Chloride Level 107 mmol/L (98-107) Carbon Dioxide Level 25 mmol/L (20-31) Anion Gap 9 (5-15) Blood Urea Nitrogen < 5 mg/dL (9-23) Creatinine 0.43 mg/dL (0.550-1.02) Glomerular Filtration Rate Calc 119 mL/min (>90) BUN/Creatinine Ratio 11.6 (10.0-20.0) Serum Glucose 95 mg/dL (74-106) Calcium Level 8.9 mg/dL (8.7-10.4) Total Bilirubin 0.3 mg/dL (0.2-1.0) Aspartate Amino Transferase (AST) 26 U/L (13-40) Alanine Aminotransferase (ALT) 31 U/L (7-40) Alkaline Phosphatase 103 U/L (46-116) Total Protein 6.5 g/dL (5.7-8.2) Albumin 3.9 g/dL (3.2-4.8) Lactic Acid Level 1.5 mmol/L (0.4-2.0) Lipase 43 U/L (12-53) Test 02/14/25 03:07 02/14/25 02:50 Influenza Type A Antigen Negative (Negative) Influenza Type B Antigen Negative (Negative) SARS-CoV-2 Antigen (Rapid) Negative (NEGATIVE) Urine Color Light-yellow (Yellow) Urine Clarity Clear (Clear) Urine pH 6.0 (5.0-9.0) Urine Specific [place] 1.011 (1.001-1.035) Urine Protein Negative (Negative) Urine Ketones Negative (Negative) Urine Blood Negative /uL (Negative) Urine Nitrite Negative (Negative) Urine Bilirubin Negative (Negative) Urine Urobilinogen Normal mg/dL (Negative) Urine Leukocyte Esterase Negative /uL (Negative) Urine RBC None seen /hpf (0 - 4) Urine Microscopic WBC 2 /HPF (0-5) Urine Squamous Epithelial Cells Few /hpf (<5) Urine Bacteria None seen /hpf (None Seen) Urine Glucose Normal mg/dL (Normal) Urine Test Negative (Negative) Other Laboratory Tests 02/15/25 05:39 Brief Hx & Hospital Course: 49-year-old female with a known history of hypertension, morbid obesity class one initially presented to the hospital with right-sided weakness and headache found to have 1. Right-sided weakness and headache rule out acute stroke, ruled out subarachnoid hemorrhage 2. Hypertension 3. Dyslipidemia 4. Mild leukocytosis elderly acute phase reactant -continue hypertensive medications MRI brain mild lumbar puncture -neurology follow up Condition at Discharge: Stable Final Diagnosis/Problems List 49-year-old female with a known history of hypertension, morbid obesity class one initially presented to the hospital with right-sided weakness and headache found to have 1. Right-sided weakness and headache rule out acute stroke, ruled out subarachnoid hemorrhage 2. Hypertension 3. Dyslipidemia 4. Mild leukocytosis elderly acute phase reactant Discharge Disposition: Home SNF Discharge Will this Physician continue t: No Discharge Instruct/Medications Diet: Cardiac 2g Na,low cholest Activity: No Restrictions, As Tolerated Follow Up/Referral: Follow up with PCP in one week Medications: Resume home medications Scheduled Losartan Potassium (Losartan Potassium), 1 TAB PO DAILY, (Reported) Discharge Statement: "Patient was advised to return to the ER or call 911 if any headaches, dizziness, shortness of breath, chest pain, abdominal pain, bleeding, fevers, or worsening of medical condition. Patient was counseled about treatment plan, medications, possible side effects, patientverbalized understanding. All questions were answered to the best of my ability. This discharge took greater then 30 minutes in planning, reviewing documentation, counseling the patient, and discussing with other team members." ASSESSMENT ASSESSMENT Assessment 49-year-old female with a known history of hypertension, morbid obesity class one initially presented to the hospital with right-sided weakness and headache found to have 1. Right-sided weakness and headache rule out acute stroke, ruled out subarachnoid hemorrhage 2. Hypertension 3. Dyslipidemia 4. Mild leukocytosis elderly acute phase reactant MAURICE RUIZ MD Feb 16, 2025 16:36
[2025-02-16] MEDS: HYDROcodone-ACET 5/325MG TAB PO PRN (18:19)
[2025-02-17 01:00] VITALS: BP 143/93; PULSE 70; RESP 18; TEMP 98.1; O2SAT 94
[2025-02-17 05:00] VITALS: BP 138/74; PULSE 73; RESP 16; TEMP 98.1; O2SAT 96
[2025-02-17 08:00] VITALS: PULSE 66
[2025-02-17 09:00] VITALS: BP 164/94; PULSE 68; RESP 18; TEMP 98.4; O2SAT 97
[2025-02-17 13:00] VITALS: BP 144/63; PULSE 69; RESP 18; TEMP 97.9; O2SAT 96
[2025-02-17 16:30] VITALS: BP 162/90; PULSE 77; RESP 20; TEMP 98.5; O2SAT 94
--- NOTE | 2025-02-17 17:06 | DVHPN2 ---
Progress Note - Dictate Date Seen: Feb 17, 2025 Medical Necessity Reason Pt with a Central, PICC or Fol: No Subjective Ms. Ryan Lai is a 49 years old right-handed female with a history of obesity, hypertension, she was brought to the [facility] on 02/14 25 with a chief company of headache. I have seen and examined the patient, I have discussed with her nurse and Dr. Naranjo. Her in the room with her. She is doing fine, alert and fully oriented, she reports no headache She has more questions, and we have discussed them CSF, 02/15/2025: C/C, WBC: 0, RBC: 0, protein: 34, glucose: 67 Urinalysis, 02/14/2025: WBC: Two, urine leukocyte esterase: Negative WBC/HB/PLT/MCV, 02/14/2025: 19.2/12.5/289/77 CMP, 02/14/2025: Unremarkable, 02/15/2025: Unremarkable CT head, 02/14/2025: No evidence of acute intracranial abnormality CTA head, neck, 02/14/2025: No acute vascular abnormality identified. MRI head, 02/15/2025: No acute abnormal MRI findings of the brain. vital signs Vital Sign Date Time Temp Pulse Resp B/P (MAP) Pulse Ox O2 Delivery O2 Flow Rate FiO2 02/17/25 16:30 98.5 77 20 162/90 (114) 94 98.5 02/17/25 08:00 Room Air* 0 21 Total Intake and Output 02/16/25 02/16/25 02/17/25 15:00 23:00 07:00 Intake Total 1200 ml 500 ml Balance 1200 ml 500 ml medications Current Medications Medications Dose Ordered Sig/Dewayne Route Start Time Stop Time Status Last Admin Dose Admin Temazepam 15 mg QHSP PRN PO 02/14/25 07:15 Ondansetron HCl 4 mg Q4HP PRN IV 02/14/25 07:15 02/14/25 16:39 4 MG Docusate Sodium 100 mg BIDPRN PRN PO 02/14/25 07:15 Morphine Sulfate 2 mg Q4HPRN PRN IV 02/14/25 07:15 02/16/25 11:38 2 MG Nitroglycerin 0.4 mg Q5MINP PRN SL 02/14/25 07:15 Losartan Potassium 50 mg DAILY PO 02/15/25 10:00 02/17/25 09:28 50 MG Clonidine HCl 0.1 mg Q4HP PRN PO 02/14/25 21:15 02/16/25 22:06 0.1 MG Acetaminophen/ Hydrocodone Bitart 1 tab Q4HPRN PRN PO 02/16/25 14:45 02/17/25 11:28 1 TAB objective General: the patient is well developed and nourished. No acute distress. MENTAL STATUS: Awake and alert. Oriented to person, place, time and general circumstances. Able to give personal history SPEECH, LANGUAGE, HIGHER CORTICAL FUNCTION: no aphasia or dysathria. CRANIAL NERVES: Pupils are equal, round and reactive. EOMs full and conjugate. No nystagmus. Facial sensation intact in all three divisions bilaterally. Mandibular strength intact. Facial muscles symmetrical and strength intact. SENSATION: Sensation to touch and pinprick is normal. MOTOR: Normal tone in the upper and lower extremity. Normal muscle bulk. No fasciculations. No abnormal movements or posturing. Muscle strength of the major groups in the left extremities is 5/5. Muscle strength of the major groups in the right extremities is 4/5 with drift in the arms and leg. REFLEXES: Deep tendon reflexes are symmetrical. No pathological reflexes. CEREBELLAR/COORDINATION: Finger to nose is normal bilaterally. GAIT/STATION: deferred. laboratory and microbiology Laboratory Tests 02/15/25 05:39 Test 02/15/25 05:39 Range/Units Serum Glucose 95 74-106 mg/dL Problem List Acute there was ever headache maximized at the moment on waking up, with right- sided weakness, with normal CSF profile and unremarkable MR brain Assessment/Plan Monitoring Supportive treatment Telemetry Okay to discharge from neurologic point of view This medical document was created using an electronic medical record system with [employer] dictation system. Although this document has been carefully reviewed, there may still be some phonetic and typographical errors. These areas are purely typographical due to imperfections of the software programs, and do not reflect any compromise in the patient's medical care. Prognosis fair Plan discussed with: Patient, Spouse, Other Total Time (mins): 35 LISBET ZACARIAS MD Feb 17, 2025 17:06
--- NOTE | 2025-02-17 17:26 | DVHPN2 ---
Subjective Patient's MRI brain is negative, LP was done which shows no evidence of organisms. Neurology follow up per discharge plan. Changes from previous H/P or p: No Changes Eyes: No Pain, No Vision change, No Conjunctivae inflammation, No Eyelid inflammation, No Other, No Redness ENT: No Ear pain, No Ear discharge, No Nose pain, No Nose discharge, No Nose congestion, No Mouth pain, No Mouth swelling, No Throat pain, No Throat swelling, No Other Cardiovascular: No Chest Pain, No Palpitations, No Orthopnea, No Paroxysmal Noc. Dyspnea, No Edema, No Lt Headedness, No Other Respiratory: No Cough, No Dry, No Shortness of breath, No SOB with excertion, No Wheezing, No Hemoptysis, No Pleuritic Pain, No Sputum, No Other Gastrointestinal: No Nausea, No Vomiting, No Abdominal Pain, No Diarrhea, No Constipation, No Melena, No Hematochezia, No Other Genitourinary: No Dysuria, No Frequency, No Incontinence, No Hematuria, No Retention, No Other Musculoskeletal: No other, No neck pain, No shoulder pain, No arm pain, No back pain, No hand pain, No leg pain, No foot pain Skin: No Rash, No Lesions, No Jaundice, No Bruising, No Other Objective Vitals Vital Signs Date Time Temp Pulse Resp B/P (MAP) Pulse Ox O2 Delivery O2 Flow Rate FiO2 02/17/25 16:30 98.5 77 20 162/90 (114) 94 98.5 02/17/25 08:00 Room Air* 0 21 Intake/Output Intake and Output 02/17/25 07:00 Intake Total 1700 ml Balance 1700 ml Intake Oral 1700 ml # Voids 8 # Bowel Movements 2 Exam HEENT pupils are reactive Neck is supple CVS S1-S2 regular rate and rhythm Respiratory viral clear GI positive bowel sounds soft nondistended nontender Extremity no edema [employer] [place] no motor deficit Medications Current Medications Medications Dose Ordered Sig/Dewayne Route Start Time Stop Time Status Last Admin Dose Admin Temazepam 15 mg QHSP PRN PO 02/14/25 07:15 Ondansetron HCl 4 mg Q4HP PRN IV 02/14/25 07:15 02/14/25 16:39 4 MG Docusate Sodium 100 mg BIDPRN PRN PO 02/14/25 07:15 Morphine Sulfate 2 mg Q4HPRN PRN IV 02/14/25 07:15 02/16/25 11:38 2 MG Nitroglycerin 0.4 mg Q5MINP PRN SL 02/14/25 07:15 Losartan Potassium 50 mg DAILY PO 02/15/25 10:00 02/17/25 09:28 50 MG Clonidine HCl 0.1 mg Q4HP PRN PO 02/14/25 21:15 02/16/25 22:06 0.1 MG Acetaminophen/ Hydrocodone Bitart 1 tab Q4HPRN PRN PO 02/16/25 14:45 02/17/25 11:28 1 TAB Laboratory Results Laboratory Tests 02/15/25 05:39 Urinalysis Test 02/14/25 02:50 Urine Color Light-yellow (Yellow) Urine Clarity Clear (Clear) Urine pH 6.0 (5.0-9.0) Urine Specific [place] 1.011 (1.001-1.035) Urine Protein Negative (Negative) Urine Ketones Negative (Negative) Urine Blood Negative /uL (Negative) Urine Nitrite Negative (Negative) Urine Bilirubin Negative (Negative) Urine Urobilinogen Normal mg/dL (Negative) Urine Leukocyte Esterase Negative /uL (Negative) Urine RBC None seen /hpf (0 - 4) Urine Microscopic WBC 2 /HPF (0-5) Urine Squamous Epithelial Cells Few /hpf (<5) Urine Bacteria None seen /hpf (None Seen) Urine Glucose Normal mg/dL (Normal) Urine Test Negative (Negative) Microbiology Microbiology Date/Time Source Procedure Growth Status 02/16/25 11:37 Stool Clostridium difficile Toxin Assay - Final Complete 02/15/25 11:00 Cerebral Spinal Fluid Gram Stain - Final Resulted 02/15/25 11:00 Cerebral Spinal Fluid CSF Culture & Gram Stain (Tube 2) M - Preliminary Resulted 02/14/25 07:15 Blood Blood Culture - Preliminary NO GROWTH AFTER 72 HOURS OF INCUBATION. Resulted Assessment/Plan Assessment/Plan 49-year-old female with a known history of hypertension, morbid obesity class one initially presented to the hospital with right-sided weakness and headache found to have 1. Right-sided weakness and headache rule out acute stroke, ruled out subarachnoid hemorrhage 2. Hypertension 3. Dyslipidemia 4. Mild leukocytosis elderly acute phase reactant -continue hypertensive medications MRI brain mild lumbar puncture -neurology follow up, discharge plan. Plan discussed with: Patient, Spouse My Orders Orders - MAURICE RUIZ MD Procedure Category Date Status Time Discharge DISCHARGE 02/17/25 Transmitted 17:12 Date of Service: Feb 16, 2025 Billing Provider: MAURICE RUIZ MD Common Visit Codes: [id number] INP/OBS CARE(MOD) MAURICE RUIZ MD Feb 17, 2025 17:26
--- NOTE | 2025-02-17 17:27 | DVHDS2 ---
Discharge Summary Date of Admission Feb 14, 2025 at 07:10 Date of Discharge: Feb 17, 2025 Labs/Diagnostic Data: Laboratory Results Test 02/15/25 11:00 02/15/25 05:39 02/14/25 06:50 02/14/25 03:28 CSF Tube Number Tube 3 CSF Appearance Clear CSF WBC 0 CUMM (0-5) CSF RBC 0 CUMM (0-5) CSF Protein (Tube 2) 34.0 mg/dL (15-45) CSF Mononuclear Cells % CSF Polymorphonuclear Cells % CSF Glucose 67 mg/dL (40-70) White Blood Count 7.1 10^3/uL (4.4-10.8) Red Blood Count 4.15 10^6/uL (4.0-5.20) Hemoglobin 10.6 g/dL (12.2-16.2) Hematocrit 31.8 % (36.0-46.0) Mean Corpuscular Volume 76.8 fL (80.0-100.0) Mean Corpuscular Hemoglobin 25.6 pg (28.0-32.0) Mean Corpuscular Hemoglobin Concent 33.4 g/dL (32.0-36.0) Red Cell Distribution Width 19.6 % (11.8-14.3) Platelet Count 213 10^3/uL (140-450) Mean Platelet Volume 7.8 fL (6.9-10.8) Neutrophils (%) (Auto) 65.3 % (37.0-80.0) Lymphocytes (%) (Auto) 23.3 % (10.0-50.0) Monocytes (%) (Auto) 7.9 % (0.0-12.0) Eosinophils (%) (Auto) 3.1 % (0.0-7.0) Basophils (%) (Auto) 0.4 % (0.0-2.0) Neutrophils # (Auto) 4.7 10 ^3/uL (1.6-8.6) Lymphocytes # (Auto) 1.7 10 ^3/uL (0.4-5.4) Monocytes # (Auto) 0.6 10 ^3/uL (0-1.3) Eosinophils # (Auto) 0.2 10 ^3/uL (0-0.8) Basophils # (Auto) 0 10 ^3/uL (0-0.2) Nucleated Red Blood Cells 0.1 % Prothrombin Time 11.7 sec (9.3-11.8) Prothrombin Time INR 1.12 (0.9-1.15) Activated Partial Thromboplast Time 27.6 SEC (24.5-34.5) Sodium Level 141 mmol/L (136-145) Potassium Level 3.5 mmol/L (3.5-5.1) Chloride Level 107 mmol/L (98-107) Carbon Dioxide Level 25 mmol/L (20-31) Anion Gap 9 (5-15) Blood Urea Nitrogen < 5 mg/dL (9-23) Creatinine 0.43 mg/dL (0.550-1.02) Glomerular Filtration Rate Calc 119 mL/min (>90) BUN/Creatinine Ratio 11.6 (10.0-20.0) Serum Glucose 95 mg/dL (74-106) Calcium Level 8.9 mg/dL (8.7-10.4) Total Bilirubin 0.3 mg/dL (0.2-1.0) Aspartate Amino Transferase (AST) 26 U/L (13-40) Alanine Aminotransferase (ALT) 31 U/L (7-40) Alkaline Phosphatase 103 U/L (46-116) Total Protein 6.5 g/dL (5.7-8.2) Albumin 3.9 g/dL (3.2-4.8) Lactic Acid Level 1.5 mmol/L (0.4-2.0) Lipase 43 U/L (12-53) Test 02/14/25 03:07 02/14/25 02:50 Influenza Type A Antigen Negative (Negative) Influenza Type B Antigen Negative (Negative) SARS-CoV-2 Antigen (Rapid) Negative (NEGATIVE) Urine Color Light-yellow (Yellow) Urine Clarity Clear (Clear) Urine pH 6.0 (5.0-9.0) Urine Specific [place] 1.011 (1.001-1.035) Urine Protein Negative (Negative) Urine Ketones Negative (Negative) Urine Blood Negative /uL (Negative) Urine Nitrite Negative (Negative) Urine Bilirubin Negative (Negative) Urine Urobilinogen Normal mg/dL (Negative) Urine Leukocyte Esterase Negative /uL (Negative) Urine RBC None seen /hpf (0 - 4) Urine Microscopic WBC 2 /HPF (0-5) Urine Squamous Epithelial Cells Few /hpf (<5) Urine Bacteria None seen /hpf (None Seen) Urine Glucose Normal mg/dL (Normal) Urine Test Negative (Negative) Other Laboratory Tests 02/15/25 05:39 Brief Hx & Hospital Course: 49-year-old female with a known history of hypertension, morbid obesity class I, initially presented to the hospital with right-sided weakness and headache, eventually admitted. Patient underwent CT head without contrast which shows no evidence of any acute pathology. Patient underwent MRI brain has been as lumbar puncture as per Neurology recommendations. Patient's MRI brain shows no evidence of any acute pathology, lumbar puncture shows no evidence of any growth. Patient's symptom has been resolved patient is currently cleared to be discharged patient is cleared by Neurology to be discharged with close follow up as an outpatient with the PCP. Condition at Discharge: Stable Final Diagnosis/Problems List 49-year-old female with a known history of hypertension, morbid obesity class one initially presented to the hospital with right-sided weakness and headache found to have 1. Right-sided weakness and headache rule out acute stroke, ruled out subarachnoid hemorrhage 2. Hypertension 3. Dyslipidemia 4. Mild leukocytosis elderly acute phase reactant Discharge Disposition: Home SNF Discharge Will this Physician continue t: No Discharge Instruct/Medications Diet: Cardiac 2g Na,low cholest Activity: No Restrictions, As Tolerated Follow Up/Referral: Follow up with PCP in one week Medications: Resume home medications Scheduled Losartan Potassium (Losartan Potassium), 1 TAB PO DAILY, (Reported) Discharge Statement: "Patient was advised to return to the ER or call 911 if any headaches, dizziness, shortness of breath, chest pain, abdominal pain, bleeding, fevers, or worsening of medical condition. Patient was counseled about treatment plan, medications, possible side effects, patientverbalized understanding. All questions were answered to the best of my ability. This discharge took greater then 30 minutes in planning, reviewing documentation, counseling the patient, and discussing with other team members." ASSESSMENT ASSESSMENT Assessment 49-year-old female with a known history of hypertension, morbid obesity class one initially presented to the hospital with right-sided weakness and headache found to have 1. Right-sided weakness and headache rule out acute stroke, ruled out subarachnoid hemorrhage 2. Hypertension 3. Dyslipidemia 4. Mild leukocytosis elderly acute phase reactant Date of Service: Feb 17, 2025 Billing Provider: MAURICE RUIZ MD Common Visit Codes: [id number] DISCH DAY >30min MAURICE RUIZ MD Feb 17, 2025 17:27
== END 2025-02-17 17:30 | disposition home or self-care (01) | DRG 948 ==
LOC: EDBD 02:36 → ER 02:36 → OVERFLOW 07:10 → CENTRAL 17:40 → TELE-CENTR 02-15 05:22
PROVIDERS: ADMIT Internal Medicine; ATTEND Internal Medicine
PROC: 009U3ZX Drainage of Spinal Canal, Percutaneous Approach, Diagnostic (ICD-10-PCS; principal; 2025-02-15)
PROC: B01BZZZ Fluoroscopy of Spinal Cord (ICD-10-PCS; 2025-02-15)
DX: R53.1 Weakness (principal); D72.829 Elevated white blood cell count, unspecified; E78.5 Hyperlipidemia, unspecified; Z20.822 Contact with and (suspected) exposure to COVID-19; I10 Essential (primary) hypertension; E66.01 Morbid (severe) obesity due to excess calories; E11.9 Type 2 diabetes mellitus without complications; Z68.31 Body mass index [BMI] 31.0-31.9, adult; Z87.891 Personal history of nicotine dependence; Z83.3 Family history of diabetes mellitus; Z82.49 Family history of ischemic heart disease and other diseases of the circulatory system
CPT/HCPCS: 36415; 62270; 62272; 70450; 70496; 70498; 70551; 71046; 72125; 73030; 73562; 74176; 80053; 81001; 81025; 82945; 83605; 83690; 84157; 85025; 85610; 85730; 87040; 87070; 87205; 87426; 87493; 87804; 89051; 93971; 96361; 96374; 96375; 96376; 97110; 97116; 97163; 97530; 99152; G0378; J1885; J2405